=== PATIENT | female | born 1955 | race Caucasian/White ===

== ENCOUNTER 2018-07-27 00:17 | Outpatient (CLI) | payer MEDICARE ==
[2018-07-27 11:11] LABS: #Basophils 0.1 thou/uL (0.0-0.2); #Eosinphils 0.1 thou/uL (0.0-0.7); #Lymphocytes 1.4 thou/uL (1.20-3.40); #Monocytes 0.4 thou/uL (0.11-0.59); #Neutrophils 2.3 thou/uL (1.40-6.50); %Basophils 2.8 % (0.0-1.0); %Eosinophils 1.9 % (0.0-10.0); %Neutrophils 53.2 % (42.0-75.0); Hemoglobin 12.6 g/dL (12.0-16.0); Mean Corpuscular HGB CONC 33.8 g/dL (32.0-36.0); Mean Corpuscular Hemoglobin 32.8 pg (27.0-31.0); Mean Corpuscular Volume 97.1 fL (78.0-98.0); Mean Platelet Volume 5.5 fL (7.4-10.4); Platelet Count 184 thou/uL (130-400); RBC Distribution Width 11.9 % (11.5-14.5); Red Blood Cell (RBC) Count 3.85 mill/uL (4.20-5.40); White Blood Cell (WBC) Count 4.3 thou/uL (4.8-10.8)
== END 2018-07-27 00:18 | disposition home or self-care (01) ==
LOC: LABBT 00:17
PROVIDERS: ATTEND Obstetrics & Gynecology
DX: Z01.812 Encounter for preprocedural laboratory examination (principal); N95.0 Postmenopausal bleeding
CPT/HCPCS: 85025

== ENCOUNTER 2018-07-28 05:54 | Day surgery (SDC) | payer MEDICARE ==
[2018-07-27 09:48] VITALS: BMI 28.2
[2018-07-28] MEDS ORDERED: Fentanyl 100 MCG/2 ML VIAL ONE (06:32)
[2018-07-28] MEDS ORDERED: Scopolamine 1.5 mg/72 hour Patch ONE (06:57)
[2018-07-28] MEDS ORDERED: Promethazine HCl 25 MG/ML VIAL ONE (07:16)
[2018-07-28] MEDS ORDERED: Propofol 500 MG/50 ML VIAL ONE (07:23)
[2018-07-28] MEDS ORDERED: Meperidine HCl/PF 25 MG/ML VIAL ONE (08:51)
--- NOTE | 2018-07-28 12:32 | OP ---
DATE OF PROCEDURE: 07/28/2018 PREOPERATIVE DIAGNOSES: 1. Postmenopausal bleeding. 2. History of breast cancer on tamoxifen. POSTOPERATIVE DIAGNOSIS: Postmenopausal bleeding with multiple polyps removed. PROCEDURE PERFORMED: Hysteroscopy with cervical dilation, endometrial curettage, and polypectomy. ANESTHESIA: LMA per Dr. Mccord. COMPLICATIONS: None. ESTIMATED BLOOD LOSS: Less than 10 mL. OPERATIVE FINDINGS: 1. Normal-appearing vaginal mucosa and cervix. 2. Multiple large polypoid growths within the uterine cavity, largest removed intact 6 cm x 1.5 cm. 3. Atrophic appearing endometrium noted after polyps removed. DESCRIPTION OF PROCEDURE: The patient was taken back to the OR with IV fluids running with initial plan for anesthesia TIVA. The patient was placed in dorsal supine position at the initiation of anesthesia and then later in low lithotomy position, where the vagina was prepped and draped in normal fashion for hysteroscopic procedures. The surgeon was then scrubbed in. The bladder drained approximately 200 mL. The bladder was being drained with a Quick catheter. The patient was not able to refrain from moving and at that time, anesthesia with LMA was initiated with the patient asleep. An operative speculum was placed in the vagina. The cervix was visualized and grasped with a single-tooth tenaculum. The cervix was then serially dilated with graduated dilators to approximately 21-Romanian. After the cervix was dilated, hysteroscope was placed under direct visualization through the cervix and the above findings were immediately noted. There was a large polyp extending from the fundus to the internal os with a cluster of smaller polyps noted as well. The polyp forceps were used to grasp the smaller polyps and they were removed with gentle traction and gentle curettage was performed with scant to minimal tissue removed. The hysteroscope was replaced into the uterine cavity with the large dominant polyp noted. The hysteroscope was removed and polyp forceps were gently placed into the cervix. The polyp was grasped and the polyp forceps were manually rotated with gentle traction until the polyp was removed from the intrauterine cavity. The large polyp was removed intact and measured approximately 6 cm in length and 1.5 cm in diameter. This was sent with the other specimens for pathologic review. After this polyp was removed, the hysteroscope was replaced again through the cervix into the intrauterine cavity, which was distended with no other polyps or pathology noted. The endometrium appeared otherwise atrophic and the tubal ostia were identified. The hysteroscope was then removed. The single-tooth tenaculum was removed. A sponge stick with gentle pressure was placed over the tenaculum site until a minimal amount of bleeding was noted to stop. The counts were correct for the sponges and instruments. The patient was cleaned, dried, and taken to the recovery room in good condition. Job ID: [id number]
[2018-07-28] MEDS ORDERED: Lidocaine 1% PF 5 ML VIAL ONE (13:04)
[2018-07-28] MEDS ORDERED: diphenhydrAMINE 50 MG/ML VIAL ONE (13:04)
[2018-07-28] MEDS ORDERED: PROPOFOL 200 MG/20 ML VIAL ONE (13:04)
[2018-07-28] MEDS ORDERED: Ondansetron PF 4 MG/2 ML Vial ONE (13:04)
== END 2018-07-28 10:30 | disposition home or self-care (01) ==
LOC: SDC 05:54
PROVIDERS: ATTEND Obstetrics & Gynecology
PROC: 0UB98ZX Excision of Uterus, Via Natural or Artificial Opening Endoscopic, Diagnostic (ICD-10-PCS; principal; 2018-07-28)
PROC: 0UDB8ZX Extraction of Endometrium, Via Natural or Artificial Opening Endoscopic, Diagnostic (ICD-10-PCS; 2018-07-28)
DX: N95.0 Postmenopausal bleeding (principal); N85.8 Other specified noninflammatory disorders of uterus; I10 Essential (primary) hypertension; E78.00 Pure hypercholesterolemia, unspecified; Z85.3 Personal history of malignant neoplasm of breast; Z88.1 Allergy status to other antibiotic agents; Z79.82 Long term (current) use of aspirin; Z79.899 Other long term (current) drug therapy
CPT/HCPCS: 36415; 85025; 86850; 86900; 86901; 88305; J2175; J2550; J2704; J3010

== ENCOUNTER 2019-02-04 10:11 | Outpatient (CLI) | payer MEDICARE ==
--- NOTE | 2019-02-04 10:59 | BD ---
EXAM: Bone densitometry using DEXA HISTORY: 63 yo female. Screening for postmenopausal osteoporosis FINDINGS: L1--bone mineral density 0.927 g/sq cm; T score -0.6 ; Z score 1.0 L2--bone mineral density 0.941 g/sq cm; T score -0.8 ; Z score 1.0 L3--bone mineral density 0.945 g/sq cm; T score -1.3 ; Z score 0.6 L4--bone mineral density 0.947 g/sq cm; T score -1.0 ; Z score 0.9 Total L1-L4--bone mineral density 0.941 g/sq cm; T score -1.0 ; Z score 0.9 Left femoral neck--bone mineral density0.764; T score -0.8 ; Z score 0.8 Total proximal left femur--bone mineral density 1.009; T score 0.5 ; Z score 1.8 IMPRESSION: Normal BMD
== END 2019-02-04 10:12 | disposition home or self-care (01) ==
LOC: BICMAMMO 10:11
PROVIDERS: ATTEND Family Medicine
DX: Z13.820 Encounter for screening for osteoporosis (principal); Z78.0 Asymptomatic menopausal state; M85.88 Other specified disorders of bone density and structure, other site
CPT/HCPCS: 77080

== ENCOUNTER 2019-05-05 10:11 | Outpatient (CLI) | payer MEDICARE ==
--- NOTE | 2019-05-05 11:15 | MMO ---
Bilateral MAMMO Bilat Diag DDI+TYREE. CLINICAL HISTORY: Patient is 64 years old and is seen for diagnostic exam. The patient has the following family history of breast cancer: mother, at age 59; maternal aunt and cousin female, MATERNAL. The patient has a history of malignant (generic) in the right breast in 2017. The patient has a history of right Stereotatic Biopsy in 2017 - malignant and right Lumpectomy in 2017 - malignant. VIEWS: The views performed were: bilateral craniocaudal with tomosynthesis; bilateral mediolateral oblique with tomosynthesis; and bilateral mediolateral with tomosynthesis. FILMS COMPARED: The present examination has been compared to prior imaging studies performed at [facility] on 02/27/2017 and 04/29/2018. This study has been interpreted with the assistance of computer-aided detection. MAMMOGRAM FINDINGS: There are scattered fibroglandular densities. Finding 1: There are stable post operative changes seen in the right breast. Finding 2: There are stable benign appearing calcifications seen in both breasts. There are no suspicious masses, suspicious calcifications, or new areas of architectural distortion. IMPRESSION: THERE IS NO MAMMOGRAPHIC EVIDENCE OF MALIGNANCY. A ROUTINE FOLLOW-UP MAMMOGRAM IN 1 YEAR IS RECOMMENDED. THE RESULTS OF THIS EXAM WERE SENT TO THE PATIENT. ACR BI-RADS Category 2 - Benign finding MAMMOGRAPHY NOTE: 1. A negative mammogram report should not delay a biopsy if a dominant of clinically suspicious mass is present. 2. Approximately 10% to 15% of breast cancers are not detected by mammography. 3. Adenosis and dense breasts may obscure an underlying neoplasm. Reported by: JAVED HOLT MD Electonically Signed: [id number]
== END 2019-05-05 10:12 | disposition home or self-care (01) ==
LOC: BICMAMMO 10:11
PROVIDERS: ATTEND Internal Medicine Hematology & Oncology
DX: Z08 Encounter for follow-up examination after completed treatment for malignant neoplasm (principal); Z85.3 Personal history of malignant neoplasm of breast
CPT/HCPCS: 77066; G0279

== ENCOUNTER 2019-12-23 07:47 | Outpatient (CLI) | payer MEDICARE, OTHER ==
[2019-12-23 11:23] LABS: #Eosinphils 0.1 thou/uL (0.0-0.7); #Lymphocytes 1.1 thou/uL (1.20-3.40); #Monocytes 0.5 thou/uL (0.11-0.59); #Neutrophils 2.6 thou/uL (1.40-6.50); %Basophils 0.2 % (0.0-1.0); %Eosinophils 1.4 % (0.0-10.0); %Lymphocytes 26.1 % (21.0-51.0); %Neutrophils 61.2 % (42.0-75.0); Hemoglobin 13.8 g/dL (12.0-16.0); Mean Corpuscular HGB CONC 32.8 g/dL (32.0-36.0); Mean Corpuscular Hemoglobin 31.9 pg (27.0-31.0); Mean Corpuscular Volume 97.5 fL (78.0-98.0); Mean Platelet Volume 6.2 fL (7.4-10.4); Platelet Count 214 thou/uL (130-400); RBC Distribution Width 11.9 % (11.5-14.5); Red Blood Cell (RBC) Count 4.32 mill/uL (4.20-5.40); White Blood Cell (WBC) Count 4.2 thou/uL (4.8-10.8)
[2019-12-23 11:37] LABS: INR-International Normal Ratio 0.9; Prothrombin Time 11.7 sec (12.0-14.7)
[2019-12-23 11:40] LABS: Calcium 9.1 mg/dL (7.8-10.44); Chloride 104 mmol/L (98-107); Potassium 3.7 mmol/L (3.5-5.1); Sodium 141 mmol/L (136-145)
[2019-12-23 11:41] LABS: Glucose 97 mg/dL (80-115)
[2019-12-23 11:42] LABS: Anion Gap 14 mmol/L (10-20); Carbon Dioxide 27 mmol/L (23-31)
[2019-12-23 11:44] LABS: Calc. Creatinine Clearance 0 mL/min (70-130); Estimated GFR-MDRD 81
[2019-12-23 11:45] LABS: BUN (Urea Nitrogen) 12 mg/dL (9.8-20.1)
[2019-12-23 12:05] LABS: Bacteria/HPF None Seen HPF (None Seen); Bilirubin Negative (Negative); Blood, Urine Negative (Negative); Clarity Turbid (Clear); Glucose, Urine (Dipstick) Normal (Negative); Ketone, Urine Negative (Negative); Leukocyte Negative Leu/uL (Negative); Nitrite Negative (Negative); Protein, Urine (Dipstick) Negative (Neg-Trace); Specific Gravity, Urine 1.022 (1.002-1.036); Squamous Epithelial 0-3 HPF (0-3); Urobilinogen Normal mg/dL (Less than 2); WBC/HPF 0-3 HPF (0-3)
[2019-12-23 17:07] LABS: SARS-CoV-2 MS2 Positive; SARS-CoV-2 N Gene Negative; SARS-CoV-2 S Gene Negative; SARS-CoV-2 by NAA Not Detected (NotDetected); SARS-CoV-2 orf1ab Negative
== END 2019-12-23 07:48 | disposition home or self-care (01) ==
LOC: LABBT 07:47
PROVIDERS: ATTEND Orthopaedic Surgery
DX: Z01.812 Encounter for preprocedural laboratory examination (principal); M16.11 Unilateral primary osteoarthritis, right hip; Z20.828 Contact with and (suspected) exposure to other viral communicable diseases
CPT/HCPCS: 80048; 81001; 85025; 85610; U0003; 87635

== ENCOUNTER 2019-12-23 09:30 | Inpatient (IN) | payer MEDICARE ==
[2019-12-28] MEDS ORDERED: Ropivacaine 0.2% HCl/PF 20 ML ONE (05:48)
[2019-12-28] MEDS ORDERED: Fentanyl 100 MCG/2 ML VIAL ONE ×2 (05:48→09:05)
[2019-12-28] MEDS ORDERED: Phenylephrine 10 MG/ML VIAL ONE (05:48)
[2019-12-28] MEDS ORDERED: Midazolam HCl 2 mg/2 ml Vial ONE (05:48)
[2019-12-28] MEDS ORDERED: Lidocaine 2% Jelly 5 ML TUBE ONE (05:49)
[2019-12-28] MEDS ORDERED: Sodium Chloride 0.9% 100 ML ONE (06:04)
[2019-12-28] MEDS ORDERED: Tranexamic Acid 1,000 MG/10 ML VIAL ONE (06:04)
[2019-12-28] MEDS ORDERED: Vancomycin 1.5 GRAM/300 ML BAG ONE (06:05)
[2019-12-28] MEDS ORDERED: Scopolamine 1.5 mg/72 hour Patch ONE (06:18)
[2019-12-28] MEDS ORDERED: Acetaminophen 500 MG TAB PO PRN (07:04)
[2019-12-28] MEDS ORDERED: diphenhydrAMINE 25 MG CAP PO PRN (07:05)
[2019-12-28] MEDS ORDERED: Ondansetron PF 4 MG/2 ML Vial IVP PRN ×2 (07:05→07:15)
[2019-12-28] MEDS ORDERED: traMADol HCl 50 MG TAB PO PRN ×3 (07:05→07:15)
[2019-12-28] MEDS ORDERED: Promethazine HCl 25 MG/ML VIAL IM PRN ×3 (07:05→08:45)
[2019-12-28] MEDS ORDERED: Zolpidem Tartrate 5 MG TAB PO PRN ×2 (07:05→07:15)
[2019-12-28] MEDS ORDERED: HYDROcodone/Acetaminophen 10/325 mg Tablet PO PRN (07:05)
[2019-12-28] MEDS ORDERED: Acetaminophen 325 MG TAB PO PRN (07:05)
[2019-12-28] MEDS ORDERED: FEXOFENADINE HCL PO PRN (07:08)
[2019-12-28] MEDS ORDERED: Promethazine HCl 25 MG SUPP PR PRN (07:15)
[2019-12-28] MEDS ORDERED: HYDROcodone/Acetaminophen 5/325 mg Tablet PO PRN ×2 (07:15)
[2019-12-28] MEDS ORDERED: Naloxone HCl 0.4 mg/ml Vial IVP PRN (07:15)
[2019-12-28] MEDS ORDERED: diphenhydrAMINE 50 MG/ML VIAL IM PRN (07:15)
[2019-12-28] MEDS ORDERED: Naloxone HCl 0.4 mg/ml Vial IV PRN (07:15)
[2019-12-28] MEDS ORDERED: Hydrocerin (Eucerin) Cream 120 gm Jar TOP PRN (07:15)
[2019-12-28] MEDS ORDERED: diphenhydrAMINE 50 MG/ML VIAL IVP PRN (07:15)
[2019-12-28] MEDS ORDERED: POTASSIUM GLUCONATE 500 MG PO SCH (08:00)
[2019-12-28] MEDS ORDERED: Ondansetron HCl/PF 4 MG/2 ML Vial IVP PRN (08:45)
[2019-12-28] MEDS ORDERED: Promethazine HCl 25 MG/ML VIAL SLOW IVP PRN (08:45)
[2019-12-28] MEDS ORDERED: Aspirin 81 mg Enteric Coated Tablet PO SCH (09:00)
[2019-12-28] MEDS ORDERED: [UNRECOGNIZED DRUG - OTHER] PO SCH (09:00)
--- NOTE | 2019-12-28 09:25 | RAD ---
XR Hip Lt 2-3 View History: Postop total hip Comparison: None. Findings: Satisfactory appearance right hip arthroplasty. A very thin 1 x 3 mm radiopacity projecting of the right greater trochanter on the AP view although is not well seen on the lateral radiograph may be extrinsic to the patient. Impression: 1. Satisfactory appearance right hip arthroplasty. 2. Thin 1 x 3 mm radiopacity projecting over the cortex right greater trochanter annotated with arrow s although not seen on the lateral radiograph could be extrinsic to patient. Repeat radiographs recommended outside of the operating room.
[2019-12-28] MEDS ORDERED: Ondansetron PF 4 MG/2 ML Vial ONE (09:56)
[2019-12-28] MEDS ORDERED: Lidocaine 1.5% w/Epi 1:200K 30 ML VIAL (Epid Use) ONE (09:56)
[2019-12-28] MEDS ORDERED: Rocuronium Bromide 10 MG/ML (10ML VIAL) ONE (09:56)
[2019-12-28] MEDS ORDERED: PROPOFOL 200 MG/20 ML VIAL ONE (09:56)
[2019-12-28] MEDS ORDERED: PHENYLEPHRINE-NS 100 MCG/ML 10 ML SYRINGE ONE (09:56)
[2019-12-28] MEDS ORDERED: Dexamethasone 20 MG/5 ML VIAL ONE (09:56)
[2019-12-28] MEDS ORDERED: Glycopyrrolate 0.2 MG/ML 5 ML SYRINGE ONE (09:56)
[2019-12-28] MEDS ORDERED: Meperidine HCl/PF 25 MG/ML VIAL ONE (10:04)
--- NOTE | 2019-12-28 10:51 | OP ---
DATE OF PROCEDURE: 12/28/2019 This is Lucho Valencia PA-C dictating a report for Abdias Canales MD. PREOPERATIVE DIAGNOSIS: End-stage bicompartmental osteoarthritis, right hip. POSTOPERATIVE DIAGNOSIS: End-stage bicompartmental osteoarthritis, right hip. PROCEDURE: Press-fit right total hip arthroplasty. SENIOR CONSTRUCTION ESTIMATOR: Lucho Valencia PA-C. ANESTHESIA: General via endotracheal tube augmented with indwelling epidural. COMPONENTS USED: [employer] Accolade II size 4 press-fit hip stem with a Trident II size 48 mm press-fit acetabular shell, 0 degree polyethylene fixed bearing insert and a +5 neck length on a ceramic femoral head. FINDINGS: End-stage severe degenerative bicompartmental disease, [id number] arthrosis, periarticular osteophyte formation, large serous effusion, hypertrophic synovium, changes consistent with degenerative bicompartmental osteoarthritis. DRAINS: None. SPECIMENS: None. COMPLICATIONS: None. ESTIMATED BLOOD LOSS: 100. INPUT: 1 L of crystalloid. OUTPUT: 200 mL of clear yellow urine. INDICATION FOR SURGERY: Shyann is a 64-year-old white female, who has had right hip, groin, and thigh pain, and has problem with standing and walking for the last 5 to 7 years. She has failed conservative management and elected to proceed with total hip arthroplasty as definitive treatment of her pain. PROCEDURE IN DETAIL: After informed consent was obtained in the preoperative holding area, the patient was taken to the operative suite where general anesthesia was induced. The patient was then positioned in the lateral decubitus position. The hip was then prepped and draped in usual sterile fashion. The patient received preoperative antibiotics. Prior to incision, time-out was called and all members of the surgical team agreed upon site, surgeon, and patient. After this, a longitudinal incision was made directly over the trochanter, noted by palpation extending 2 fingerbreadths above and below the trochanter. The deeper subcutaneous layer was undermined with Bovie electrocautery. The iliotibial band was encountered and incised sharply and the plane below this was developed bluntly. A Charnley retractor was placed to hold this opened. The lateral aspect of the trochanter and the abductor muscles were encountered and then reflected anteriorly off the trochanter using Bovie electrocautery. Once this was completed, the anterior capsule was then encountered and identified and copious capsulotomy was carried out, exposing the femoral neck and head. Dislocation maneuver was then performed and an in situ provisional neck cut was then made using the oscillating saw. Attention was then turned to acetabular preparation. Sequential reaming was carried out up to the appropriate diameter and a trial was then malleted into place with good firm resistance and no pullout. The permanent acetabular shell was then malleted squarely into place, as was the appropriate liner. Once completed, the wound was copiously irrigated and attention was then turned to femoral preparation. Flexion and external rotation were performed of the exposed thigh and femoral elevators were then placed at the proximal aspect of the wound. Canal finder was used to establish the length of the canal and sequential reaming was carried out, followed by broaching. Once the appropriate stability was established with the trial broaches with flexion, extension and rotational stability, we did trial with neutral and 2 mm offset incremental necks. Once the appropriate size was decided upon, with good stability noted with flexion, extension, internal and external rotation and shuck being negative, we removed the femoral trial broach and malletted into place the permanent prosthesis with good firm fit, which was also stable to rotation. Again, the hip felt very stable to flexion, extension, internal and external rotation. Leg lengths appeared near anatomic clinically and we were quite happy with prosthesis placement. Copious irrigation was then carried out through the entirety of the wound. Primary closure of the abductors was accomplished with interrupted #2 Vicryl [id number] stitches and the IT band was then closed with interrupted #2 Vicryl, oversewn with a #2 running barbed Quill stitch. Subcutaneous fascia was closed with running barbed Quill stitch and a subcuticular Monocryl barbed Quill stitch was used for skin closure and augmented with skin cement. A sterile dressing was applied. The procedure was terminated without any complication. All counts were correct. The patient was awakened in the operative suite and taken to the recovery room in stable condition. Job ID: [id number]
[2019-12-28 12:11] VITALS: BMI 29.8
[2019-12-28] MEDS: Aspirin 81 mg Enteric Coated Tablet PO SCH ×2 (12:24→21:18)
[2019-12-28] MEDS: Magnesium Oxide 400 MG TAB PO SCH (12:24)
[2019-12-28] MEDS: Losartan 25 MG TAB PO SCH (12:24)
[2019-12-28] MEDS: Cholecalciferol 1,000 UNITS (25 MCG) TAB PO SCH (12:24)
[2019-12-28] MEDS: Ketorolac Tromethamine 30 MG/ML VIAL IVP SCH ×3 (13:08→23:52)
[2019-12-28] MEDS: CEFAZOLIN 2 GM in Premix Bag 1 BAG IVPB SCH ×2 (13:09→21:18)
[2019-12-28] MEDS ORDERED: Ketorolac Tromethamine 30 MG/ML VIAL IM SCH (14:00)
[2019-12-28] MEDS: Atorvastatin Calcium 20 MG TAB PO SCH (21:18)
[2019-12-29] MEDS: fentaNYL Citrate/PF 500 MCG, Bupivacaine 10 ML in Sodium Chloride 0.9% 80 ML EPIDURAL SCH ×2 (01:43→18:27)
[2019-12-29 05:16] LABS: Hemoglobin 10.6 g/dL (12.0-16.0); Mean Corpuscular HGB CONC 33.1 g/dL (32.0-36.0); Mean Corpuscular Hemoglobin 32.8 pg (27.0-31.0); Mean Platelet Volume 5.8 fL (7.4-10.4); Platelet Count 154 thou/uL (130-400); RBC Distribution Width 11.8 % (11.5-14.5); Red Blood Cell (RBC) Count 3.25 mill/uL (4.20-5.40); White Blood Cell (WBC) Count 8.1 thou/uL (4.8-10.8)
[2019-12-29] MEDS: Ketorolac Tromethamine 30 MG/ML VIAL IVP SCH ×3 (05:59→18:09)
[2019-12-29] MEDS: Levothyroxine Sodium 50 MCG TAB PO SCH (05:59)
[2019-12-29] MEDS: Senokot S 8.6-50 MG TAB PO SCH ×2 (08:11→20:48)
[2019-12-29] MEDS: Magnesium Oxide 400 MG TAB PO SCH (08:11)
[2019-12-29] MEDS: Aspirin 81 mg Enteric Coated Tablet PO SCH ×2 (08:11→20:48)
[2019-12-29] MEDS: diphenhydrAMINE 25 MG CAP PO PRN ×3 (08:11→18:10)
[2019-12-29] MEDS: Ferrous Gluconate 324 MG TAB PO SCH ×2 (08:12→18:11)
[2019-12-29] MEDS: Losartan 25 MG TAB PO SCH (08:12)
[2019-12-29] MEDS: Cholecalciferol 1,000 UNITS (25 MCG) TAB PO SCH (08:12)
[2019-12-29] MEDS: Multivitamin W/ Minerals 1 TAB PO SCH (08:13)
--- NOTE | 2019-12-29 10:34 | PRG ---
DATE OF SERVICE: 12/29/2019 SUBJECTIVE: Shyann is a 64-year-old female postop day #1 from a right total hip arthroplasty. She is doing relatively well. She has no complaints. She is very comfortable. OBJECTIVE: VITAL SIGNS: Temperature 99.6, pulse 80, respiratory rate 16, and blood pressure 111/66. GENERAL: She is alert and oriented to person, place, time, and situation. Responsive, appropriate, and conversive with examiner. EXTREMITIES: Incision is clean. No strikethrough. No malrotation or shortening. She is neurovascularly intact in the right lower extremity. LABORATORY DATA: Hemoglobin and hematocrit 10.6 and 32.1. IMPRESSION: 1. A 64-year-old female postop day #1 right total hip arthroplasty, doing well. 2. Mild postoperative hemorrhagic anemia. PLAN: Continue current care. Plan for removal of epidural and Quick tomorrow. Expected discharge tomorrow noon to home. Job ID: [id number]
[2019-12-29] MEDS: Atorvastatin Calcium 20 MG TAB PO SCH (20:48)
[2019-12-30] MEDS: Ketorolac Tromethamine 30 MG/ML VIAL IVP SCH ×2 (00:03→05:27)
[2019-12-30] MEDS: Levothyroxine Sodium 50 MCG TAB PO SCH (05:27)
[2019-12-30] MEDS: Cholecalciferol 1,000 UNITS (25 MCG) TAB PO SCH (08:16)
[2019-12-30] MEDS: Ferrous Gluconate 324 MG TAB PO SCH (08:16)
[2019-12-30] MEDS: Senokot S 8.6-50 MG TAB PO SCH (08:16)
[2019-12-30] MEDS: Aspirin 81 mg Enteric Coated Tablet PO SCH (08:16)
[2019-12-30] MEDS: Magnesium Oxide 400 MG TAB PO SCH (08:16)
[2019-12-30] MEDS: diphenhydrAMINE 25 MG CAP PO PRN (08:17)
[2019-12-30] MEDS: Losartan 25 MG TAB PO SCH (08:17)
[2019-12-30] MEDS: Multivitamin W/ Minerals 1 TAB PO SCH (08:17)
[2019-12-30] MEDS ORDERED: HYDROcodone/Acetaminophen 10/325 mg Tablet PO PRN ×2 (11:21→11:22)
[2019-12-30 12:05] VITALS: BP 104/63; TEMP 98.3
== END 2019-12-30 14:00 | disposition home or self-care (01) | DRG 470 ==
LOC: SJJU 12-28 05:25
PROVIDERS: ADMIT Orthopaedic Surgery; ATTEND Orthopaedic Surgery
PROC: 0SR904A Replacement of Right Hip Joint with Ceramic on Polyethylene Synthetic Substitute, Uncemented, Open Approach (ICD-10-PCS; principal; 2019-12-28)
DX: M16.11 Unilateral primary osteoarthritis, right hip (principal); D62 Acute posthemorrhagic anemia; M25.751 Osteophyte, right hip; I10 Essential (primary) hypertension; E78.5 Hyperlipidemia, unspecified; J30.2 Other seasonal allergic rhinitis; E03.9 Hypothyroidism, unspecified; Z79.899 Other long term (current) drug therapy; Z79.82 Long term (current) use of aspirin
CPT/HCPCS: 36415; 85027; J0690; J1100; J1885; J2001; J2175; J2250; J2370; J2405; J2704; J2795; J3010; J3370; J3490; Q0163

== ENCOUNTER 2020-05-08 08:01 | Outpatient (CLI) | payer MEDICARE ==
--- NOTE | 2020-05-08 08:30 | MMO ---
Bilateral MAMMO Bilat Diag DDI+TYREE. CLINICAL HISTORY: Patient is 65 years old and is seen for diagnostic exam. The patient has the following family history of breast cancer: mother, at age 59; maternal aunt and cousin female, MATERNAL. The patient has a history of malignant (generic) in the right breast in 2017. The patient has a history of right Stereotatic Biopsy in 2017 - malignant and right Lumpectomy in 2017 - malignant. VIEWS: The views performed were: bilateral craniocaudal with tomosynthesis; bilateral mediolateral oblique with tomosynthesis; and bilateral mediolateral with tomosynthesis. FILMS COMPARED: The present examination has been compared to prior imaging studies performed at [facility] on 05/05/2019, and at [facility] on 02/27/2017 and 04/29/2018. This study has been interpreted with the assistance of computer-aided detection. MAMMOGRAM FINDINGS: There are scattered fibroglandular densities. Finding 1: There is an area of architectural distortion with associated post-surgical scar seen in the right breast. Finding 2: There are stable benign appearing calcifications seen in both breasts. There are no suspicious masses, suspicious calcifications, or new areas of architectural distortion. IMPRESSION: THERE IS NO MAMMOGRAPHIC EVIDENCE OF MALIGNANCY. A ROUTINE FOLLOW-UP MAMMOGRAM IN 1 YEAR IS RECOMMENDED. THE RESULTS OF THIS EXAM WERE SENT TO THE PATIENT. ACR BI-RADS Category 2 - Benign finding MAMMOGRAPHY NOTE: 1. A negative mammogram report should not delay a biopsy if a dominant of clinically suspicious mass is present. 2. Approximately 10% to 15% of breast cancers are not detected by mammography. 3. Adenosis and dense breasts may obscure an underlying neoplasm. Reported by: MAYRA BAUER MD Electonically Signed: [id number]
== END 2020-05-08 08:02 | disposition home or self-care (01) ==
LOC: BICMAMMO 08:01
PROVIDERS: ATTEND Internal Medicine Hematology & Oncology
DX: Z08 Encounter for follow-up examination after completed treatment for malignant neoplasm (principal); Z85.3 Personal history of malignant neoplasm of breast
CPT/HCPCS: 77063; 77067

== ENCOUNTER 2021-03-26 08:09 | Outpatient (CLI) | payer MEDICARE | END 2021-03-26 08:10 | disposition home or self-care (01) | LOC: BICMAMMO 08:09 | PROVIDERS: ATTEND Family Medicine | DX: Z13.820 Encounter for screening for osteoporosis (principal); Z78.0 Asymptomatic menopausal state; M85.852 Other specified disorders of bone density and structure, left thigh | CPT/HCPCS: 77080 ==

== ENCOUNTER 2021-05-15 07:59 | Outpatient (CLI) | payer MEDICARE | END 2021-05-15 08:00 | disposition home or self-care (01) | LOC: BICMAMMO 07:59 | PROVIDERS: ATTEND Internal Medicine Hematology & Oncology | DX: Z12.31 Encounter for screening mammogram for malignant neoplasm of breast (principal); Z85.3 Personal history of malignant neoplasm of breast; Z85.820 Personal history of malignant melanoma of skin; Z80.3 Family history of malignant neoplasm of breast | CPT/HCPCS: 77063; 77067 ==

== ENCOUNTER 2022-05-17 09:45 | Outpatient (CLI) | payer MEDICARE, OTHER | END 2022-05-17 09:46 | disposition home or self-care (01) | LOC: BICMAMMO 09:45 | PROVIDERS: ATTEND Obstetrics & Gynecology | DX: Z12.31 Encounter for screening mammogram for malignant neoplasm of breast (principal); Z80.3 Family history of malignant neoplasm of breast; Z85.3 Personal history of malignant neoplasm of breast; Z85.828 Personal history of other malignant neoplasm of skin; Z98.890 Other specified postprocedural states | CPT/HCPCS: 77063; 77067 ==

== ENCOUNTER 2022-07-03 09:50 | Outpatient (CLI) | payer MEDICARE, OTHER | END 2022-07-03 09:51 | disposition home or self-care (01) | LOC: BICRAD 09:50 | PROVIDERS: ATTEND Family Medicine | DX: M25.562 Pain in left knee (principal) ==

== ENCOUNTER 2024-02-12 09:26 | Outpatient (CLI) | payer MEDICARE, OTHER | END 2024-02-12 09:27 | disposition home or self-care (01) | LOC: CT 09:26 | PROVIDERS: ATTEND Orthopaedic Surgery | DX: M17.12 Unilateral primary osteoarthritis, left knee (principal); N83.8 Other noninflammatory disorders of ovary, fallopian tube and broad ligament ==

== ENCOUNTER 2024-02-18 11:30 | Outpatient (CLI) | payer MEDICARE, OTHER ==
[2024-02-18 13:25] LABS: #Basophils 0.03 10x3/uL (0.0-0.2); %Basophils 0.6 % (0.0-1.0); %Eosinophils 4.4 % (0.0-10.0); %Lymphocytes 26.7 % (21.0-51.0); %Monocytes 9.5 % (0.0-10.0); %Neutrophils 58.4 % (42.0-75.0); Hematocrit 41.1 % (36.0-47.0); Hemoglobin 13.6 g/dL (12.0-16.0); Mean Corpuscular HGB CONC 33.1 g/dL (32.0-36.0); Mean Corpuscular Hemoglobin 32.3 pg (27.0-31.0); Mean Corpuscular Volume 97.6 fL (78.0-98.0); Mean Platelet Volume 8.3 fL (7.4-10.4); Platelet Count 191 10x3/uL (130-400); RBC Distribution Width 12.2 % (11.5-14.5); Red Blood Cell (RBC) Count 4.21 mill/uL (4.20-5.40)
[2024-02-18 13:29] LABS: Bilirubin Negative (Negative); Blood, Urine Negative (Negative); Clarity Clear (Clear); Glucose, Urine (Dipstick) Normal (Negative); Ketone, Urine Negative (Negative); Leukocyte Negative Leu/uL (Negative); Nitrite Negative (Negative); Protein, Urine (Dipstick) Negative (Neg-Trace); Specific Gravity, Urine 1.002 (1.002-1.036); Urobilinogen Normal mg/dL (Less than 2)
[2024-02-18 13:45] LABS: INR-International Normal Ratio 0.9; Prothrombin Time 12.4 sec (12.0-14.7)
[2024-02-18 13:46] LABS: Anion Gap 12 mmol/L (10-20); BUN (Urea Nitrogen) 15 mg/dL (9.8-20.1); Calc. Creatinine Clearance 0 mL/min (70-130); Calcium 9.5 mg/dL (7.8-10.44); Carbon Dioxide 27 mmol/L (23-31); Chloride 103 mmol/L (98-107); Estimated GFR 87; Glucose 101 mg/dL (80-115); Potassium 3.5 mmol/L (3.5-5.1); Sodium 138 mmol/L (136-145)
== END 2024-02-18 11:31 | disposition home or self-care (01) ==
LOC: LABBT 11:30
PROVIDERS: ATTEND Orthopaedic Surgery
DX: Z01.818 Encounter for other preprocedural examination (principal); M17.12 Unilateral primary osteoarthritis, left knee
CPT/HCPCS: 71046; 80048; 81003; 85025; 85610; 87081; 93005; 93010

== ENCOUNTER 2024-02-23 06:39 | Observation (INO) | payer MEDICARE ==
[2024-02-23] MEDS ORDERED: Midazolam HCl 2 mg/2 ml Vial ONE (07:38)
[2024-02-23] MEDS ORDERED: fentaNYL 50 mcg/mL 1 mL Vial ONE ×3 (07:38→12:41)
[2024-02-23] MEDS ORDERED: Bupivacaine PF 0.5% 30 ML VIAL ONE (07:39)
[2024-02-23] MEDS ORDERED: Bupivacaine 0.25% HCL 30 ML VIAL ONE (08:04)
[2024-02-23] MEDS ORDERED: CEFAZOLIN 2 GM VIAL ONE (08:04)
[2024-02-23] MEDS ORDERED: Vancomycin (BATCH) 1.5 GM/300 ML BAG ONE (08:07)
[2024-02-23] MEDS ORDERED: Tranexamic Acid 1,000 MG/10 ML VIAL ONE (08:07)
[2024-02-23] MEDS ORDERED: Sodium Chloride 0.9% 100 ML ONE (08:08)
[2024-02-23] MEDS ORDERED: PROPOFOL 20 ML ONE (08:52)
[2024-02-23] MEDS ORDERED: Lidocaine 1% PF 5 ML VIAL ONE (08:53)
[2024-02-23] MEDS ORDERED: Dexamethasone 4 mg/ml Vial ONE (08:53)
[2024-02-23] MEDS ORDERED: Ondansetron PF 4 MG/2 ML Vial ONE (08:53)
[2024-02-23] MEDS ORDERED: Bupivacaine HCl 0.5%/Epinephrine 1:200,000/PF 30 ml Vial ONE (09:00)
[2024-02-23] MEDS ORDERED: fentaNYL 50 mcg/mL 1 mL Vial SLOW IVP PRN (09:15)
[2024-02-23] MEDS ORDERED: Promethazine HCl 25 MG/ML VIAL IM PRN ×2 (09:15→10:46)
[2024-02-23] MEDS ORDERED: HYDROcodone/Acetaminophen 10/325 mg Tablet PO PRN (09:15)
[2024-02-23] MEDS ORDERED: Zolpidem Tartrate 5 MG TAB PO PRN ×2 (09:15→10:46)
[2024-02-23] MEDS ORDERED: traMADol HCl 50 MG TAB PO PRN ×2 (09:15)
[2024-02-23] MEDS ORDERED: Ondansetron PF 4 MG/2 ML Vial IVP PRN ×2 (09:15→10:46)
[2024-02-23] MEDS ORDERED: Ropivacaine 0.2% 550 ML 550 ML NERVE BLCK SCH (09:15)
[2024-02-23] MEDS ORDERED: ePHEDrine Sulfate 50 MG/10 ML VIAL ONE (09:30)
[2024-02-23] MEDS ORDERED: fentaNYL PF 100 MCG/2 ML SYRINGE ONE (09:57)
[2024-02-23] MEDS ORDERED: Acetaminophen 325 MG TAB PO PRN (10:46)
[2024-02-23] MEDS ORDERED: Tranexamic Acid 1,000 MG in Sodium Chloride 0.9% 100 ML IVPB SCH (11:00)
[2024-02-23] MEDS ORDERED: Scopolamine 1 mg/72 hour Patch ONE (11:46)
[2024-02-23] MEDS: Ketorolac Tromethamine 30 MG (1 mL) VIAL IVP SCH (15:54)
[2024-02-23] MEDS: HYDROcodone/Acetaminophen 10/325 mg Tablet PO PRN (16:11)
[2024-02-23] MEDS: CEFAZOLIN 2 GM in Sodium Chloride 0.9% 100 ML IVPB SCH (16:12)
[2024-02-23 16:42] VITALS: BMI 30.7
[2024-02-23] MEDS: Sodium Chloride 0.9% 1,000 ML IV SCH (18:49)
[2024-02-23] MEDS ORDERED: Simvastatin 40 MG TAB PO SCH (21:00)
[2024-02-23] MEDS ORDERED: Aspirin 81 mg Enteric Coated Tablet PO SCH (21:00)
[2024-02-23] MEDS: Senokot S 8.6-50 MG TAB PO SCH (21:45)
[2024-02-23] MEDS: Meloxicam 7.5 MG TAB PO SCH (21:46)
[2024-02-23] MEDS: Aspirin 81 mg Enteric Coated Tablet PO SCH (21:46)
[2024-02-23] MEDS: Ferrous Gluconate 324 MG TAB PO SCH (21:46)
[2024-02-23] MEDS: Atorvastatin Calcium 20 MG TAB PO SCH (21:46)
[2024-02-23] MEDS: Vancomycin 1.5 GM in Sodium Chloride 0.9% 250 ML 300 ML IVPB SCH (22:18)
[2024-02-24] MEDS: diphenhydrAMINE 25 MG CAP PO PRN (00:04)
[2024-02-24 05:27] LABS: Hematocrit 31.8 % (36.0-47.0); Hemoglobin 10.6 g/dL (12.0-16.0); Mean Corpuscular HGB CONC 33.3 g/dL (32.0-36.0); Mean Corpuscular Hemoglobin 32.6 pg (27.0-31.0); Mean Corpuscular Volume 97.8 fL (78.0-98.0); Mean Platelet Volume 8.4 fL (7.4-10.4); Platelet Count 150 10x3/uL (130-400); RBC Distribution Width 12.6 % (11.5-14.5); Red Blood Cell (RBC) Count 3.25 mill/uL (4.20-5.40)
[2024-02-24] MEDS: Levothyroxine Sodium 50 MCG TAB PO SCH (05:55)
[2024-02-24] MEDS: Multivitamin W/ Minerals 1 TAB PO SCH (08:34)
[2024-02-24] MEDS: Potassium Chloride 8 MEQ TAB PO SCH (08:35)
[2024-02-24] MEDS: Losartan 25 MG TAB PO SCH (08:36)
[2024-02-24] MEDS: Magnesium Oxide 400 MG TAB PO SCH (08:36)
[2024-02-24] MEDS: Cholecalciferol 1,000 UNITS (25 MCG) TAB PO SCH (08:36)
[2024-02-24 08:41] VITALS: TEMP 97.4
[2024-02-24] MEDS ORDERED: Non-Formulary Item 1 EACH (Cholecalciferol (Vitamin D3) [Vitamin D3] 5,000 UNIT Capsule) PO SCH (09:00)
[2024-02-24] MEDS ORDERED: Non-Formulary Item 1 EACH (Magnesium Oxide [Magnesium] 400 MG Tablet) PO SCH (09:00)
[2024-02-24] MEDS ORDERED: Levothyroxine Sodium 25 MCG TAB PO SCH (09:00)
[2024-02-24] MEDS ORDERED: POTASSIUM GLUCONATE 500 MG PO SCH (09:00)
[2024-02-24] MEDS ORDERED: [UNRECOGNIZED DRUG - OTHER] PO SCH (09:00)
[2024-02-24 12:18] VITALS: BP 116/71
== END 2024-02-24 14:32 | disposition home or self-care (01) ==
LOC: SDC 06:39 → SURG B 15:23
PROVIDERS: ADMIT Orthopaedic Surgery; ATTEND Orthopaedic Surgery
PROC: 0SRD0JZ Replacement of Left Knee Joint with Synthetic Substitute, Open Approach (ICD-10-PCS; principal; 2024-02-23)
PROC: 3E0T3BZ Introduction of Anesthetic Agent into Peripheral Nerves and Plexi, Percutaneous Approach (ICD-10-PCS; 2024-02-23)
DX: M17.12 Unilateral primary osteoarthritis, left knee (principal); E78.00 Pure hypercholesterolemia, unspecified; H26.9 Unspecified cataract; I10 Essential (primary) hypertension; E07.9 Disorder of thyroid, unspecified; Z88.6 Allergy status to analgesic agent; Z79.890 Hormone replacement therapy; Z79.899 Other long term (current) drug therapy
CPT/HCPCS: 0055T; 27447; 64448; 36415; 85027; A4306; C1713; C1776; C1889; J0665; J1100; J1885; J2250; J2405; J2704; J2795; J3010; J3370; J7050

== ENCOUNTER 2024-06-24 08:33 | Outpatient (CLI) | payer MEDICARE | END 2024-06-24 08:34 | disposition home or self-care (01) | LOC: BICMAMMO 08:33 | PROVIDERS: ATTEND Obstetrics & Gynecology | DX: Z12.31 Encounter for screening mammogram for malignant neoplasm of breast (principal); N64.89 Other specified disorders of breast; Z80.3 Family history of malignant neoplasm of breast; Z85.3 Personal history of malignant neoplasm of breast; Z85.828 Personal history of other malignant neoplasm of skin; Z98.890 Other specified postprocedural states | CPT/HCPCS: 77063; 77067 ==